=== PATIENT | male | born 1980 | race Caucasian/White ===

== ENCOUNTER 2019-04-09 23:25 | Emergency (ER) | payer SELFPAY ==
[~2019-04-09] VITALS: Ht 177.8 cm; Wt 94.3 kg
[2019-04-09 23:25] VITALS: BP_SYST 122
--- NOTE | 2019-04-09 23:25 | NUR ---
Patient to ER bed 8 to gown for evaluation. Side rails up. Report given to AGUILA ELLSWORTH.
--- NOTE | 2019-04-09 23:41 | NUR ---
ER Dr. Mejias at bedside examining patient.
--- NOTE | 2019-04-09 23:54 | NUR ---
Patient given written and verbal discharge instructions and verbalizes understanding. ER MD discussed with patient the results and treatment provided. Patient in stable condition. ID arm band removed. Rx of OCUFLOX OPHTHA given. Patient educated on pain management and to follow up with PMD. Pain Scale 8/10. Opportunity for questions provided and answered. Medication side effect fact sheet provided.
[2019-04-09 23:56] VITALS: BP_SYST 123
== END 2019-04-09 23:56 | disposition home or self-care (01) ==
LOC: SED 23:25
DX: H10.9 Unspecified conjunctivitis (principal); F17.210 Nicotine dependence, cigarettes, uncomplicated
CPT/HCPCS: 99283

== ENCOUNTER 2023-09-05 21:52 | Emergency (ER) | payer MEDICAID ==
[~2023-09-05] VITALS: Ht 175.3 cm; Wt 93.0 kg
[~2023-09-05 21:52] MED LIST: CEPH-548 PO
[2023-09-05 22:01] VITALS: BP_SYST 140; PULSE 94; RESP 20; TEMP 97.1; O2SAT 96
[2023-09-05] MEDS ORDERED: NAPR-690 PO (22:12)
[2023-09-05] MEDS ORDERED: PENI500T PO (22:12)
[2023-09-05] MEDS ORDERED: cefTRIAXone 1 GM in LIDOCAINE 1%, 20 ML MDV 2.1 ML IM ONE (22:15)
[2023-09-05 22:21] VITALS: BP_SYST 140; PULSE 94; RESP 20; TEMP 97.1; O2SAT 96
== END 2023-09-05 22:21 | disposition home or self-care (01) ==
LOC: SED 21:52
DX: K02.9 Dental caries, unspecified (principal); K08.89 Other specified disorders of teeth and supporting structures; Z79.899 Other long term (current) drug therapy
CPT/HCPCS: 99283; 96372; J0696; J2001

== ENCOUNTER 2023-09-06 08:08 | Emergency (ER) | payer MEDICAID ==
[~2023-09-06] VITALS: Ht 175.3 cm; Wt 95.3 kg
[2023-09-06 08:08] VITALS: BP_SYST 144; PULSE 105; RESP 18; TEMP 98.4; O2SAT 95
[~2023-09-06 08:08] MED LIST changes: +NAPR-690 PO; +PENI500T PO
[2023-09-06] MEDS ORDERED: DEXAMETHASONE SOD PHOSPHATE 10 MG/ML VIAL IM ONE (08:45)
[2023-09-06] MEDS ORDERED: KETOROLAC TROMETHAMINE 30 MG VIAL IM ONE (08:45)
[2023-09-06 09:05] VITALS: BP_SYST 144; PULSE 105; RESP 18; TEMP 98.4; O2SAT 95
== END 2023-09-06 09:05 | disposition home or self-care (01) ==
LOC: SED 08:08
DX: K04.7 Periapical abscess without sinus (principal); R22.0 Localized swelling, mass and lump, head; Z79.899 Other long term (current) drug therapy
CPT/HCPCS: 99284; 96372; J1100; J1885